=== PATIENT | male | born 1955 | race Caucasian/White ===

== ENCOUNTER 2018-08-03 08:54 | Emergency (ER) | payer OTHER ==
[~2018-08-03] VITALS: Ht 188 cm; Wt 84.0 kg
[2018-08-03] MEDS ORDERED: tetanus & diphtheria toxoid (Td) vaccine 0.5ml IMVAC ONE (09:25)
[2018-08-03] MEDS ORDERED: CEPH500C5 PO (09:25)
[2018-08-03] MEDS ORDERED: silver sulfadiazine cream 400gm jar TP ONE (09:25)
[2018-08-03] MEDS ORDERED: SILV20CR13 TOP (09:25)
[2018-08-03] MEDS ORDERED: TETanus/Pertussis (Acell)/Diphther VAC/PF (Tdap-Adult) 0.5ml syringe IMVAC ONE (09:55)
[2018-08-03 10:12] VITALS: BP 126/80
== END 2018-08-03 10:13 | disposition home or self-care (01) ==
LOC: ER 08:55
DX: T21.24XA Burn of second degree of lower back, initial encounter (principal); T21.25XA Burn of second degree of buttock, initial encounter; I10 Essential (primary) hypertension; J44.9 Chronic obstructive pulmonary disease, unspecified; F12.90 Cannabis use, unspecified, uncomplicated; Z87.891 Personal history of nicotine dependence; Z79.2 Long term (current) use of antibiotics; X08.8XXA Exposure to other specified smoke, fire and flames, initial encounter; Y93.89 Activity, other specified; Y92.89 Other specified places as the place of occurrence of the external cause; Y99.8 Other external cause status
CPT/HCPCS: 90471; 90715; 99283